=== PATIENT | female | born 1975 | race African-American/Black ===

== ENCOUNTER 2016-02-22 06:39 | Emergency (ER) | payer OTHER ==
[~2016-02-22] VITALS: Ht 160 cm; Wt 82.6 kg
[2016-02-22 06:57] VITALS: BP 112/62
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
[2016-02-22] MEDS ORDERED: NAPR375T3 PO (07:38)
== END 2016-02-22 07:45 | disposition home or self-care (01) ==
LOC: ER 06:39
DX: R60.0 Localized edema (principal); Z88.6 Allergy status to analgesic agent
CPT/HCPCS: 99282